=== PATIENT | female | born 1965 | race Caucasian/White ===

== ENCOUNTER 2017-10-16 09:03 | Emergency (ER) | payer OTHER ==
[~2017-10-16] VITALS: Ht 152.4 cm; Wt 59.4 kg
[~2017-10-16 09:03] MED LIST: NAPROXEN25 GM MC; TUSSIONEX PENNKI5 ML PO; ZITHROMAX500 MG PO
== END 2017-10-16 11:22 | disposition home or self-care (01) ==
LOC: ER 09:03
DX: J02.9 Acute pharyngitis, unspecified (principal); K29.70 Gastritis, unspecified, without bleeding

== ENCOUNTER 2017-10-26 10:11 | Inpatient (IN) | payer OTHER ==
[~2017-10-26] VITALS: Ht 152.4 cm; Wt 59.4 kg
[2017-10-26] MEDS ORDERED: AMOX-CLAV 875-1 EACH (10:27)
== END 2017-10-29 13:47 | disposition home or self-care (01) | DRG 392 ==
LOC: ER 10:11 → SEC-K 16:28 → MEDI 16:28
PROC: BW21Y0Z Computerized Tomography (CT Scan) of Abdomen and Pelvis using Other Contrast, Unenhanced and Enhanced (ICD-10-PCS; principal; 2017-10-26)
DX: K57.32 Diverticulitis of large intestine without perforation or abscess without bleeding (principal)

== ENCOUNTER 2018-04-15 08:44 | Day surgery (SDC) | payer OTHER ==
[~2018-04-15 08:44] MED LIST changes: +AMOX-CLAV 875-1 EACH
== END 2018-04-15 16:50 | disposition home or self-care (01) ==
LOC: AMB-ENDOS 08:44 → CIR.AMB 04-18 14:30
DX: K57.32 Diverticulitis of large intestine without perforation or abscess without bleeding (principal); K64.2 Third degree hemorrhoids

== ENCOUNTER 2018-04-24 07:25 | Emergency (ER) | payer OTHER ==
[~2018-04-24] VITALS: Ht 152.4 cm; Wt 59.0 kg
[2018-04-24] MEDS ORDERED: TUSSI PRES-B L120 M1 (07:50)
[2018-04-24] MEDS ORDERED: TAMIFLU45 MG (07:50)
[2018-04-24] MEDS ORDERED: ZITHROMAX500 MG PO (10:34)
== END 2018-04-24 10:43 | disposition home or self-care (01) ==
LOC: ER 07:25
DX: J06.9 Acute upper respiratory infection, unspecified (principal); H60.8X2 Other otitis externa, left ear; J32.0 Chronic maxillary sinusitis

== ENCOUNTER 2019-03-28 08:49 | Emergency (ER) | payer OTHER ==
[~2019-03-28] VITALS: Ht 152.4 cm; Wt 59.0 kg
[~2019-03-28 08:49] MED LIST changes: +TAMIFLU45 MG; +TUSSI PRES-B L120 M1
[2019-03-28] MEDS ORDERED: ASA81 MG (08:58)
[2019-03-28] MEDS ORDERED: ATORVASTATIN CA40 MG (08:59)
== END 2019-03-28 12:37 | disposition home or self-care (01) ==
LOC: ER 08:49
DX: R42 Dizziness and giddiness (principal); K29.70 Gastritis, unspecified, without bleeding

== ENCOUNTER 2020-10-18 14:24 | Outpatient (CLI) | payer OTHER ==
[~2020-10-18 14:24] MED LIST changes: +ASA81 MG; +ATORVASTATIN CA40 MG
== END 2020-10-18 14:56 | disposition home or self-care (01) ==
LOC: OFIC 805 14:24
PROVIDERS: ATTEND Otolaryngology Otology & Neurotology
DX: K21.9 Gastro-esophageal reflux disease without esophagitis (principal); F45.8 Other somatoform disorders; J02.8 Acute pharyngitis due to other specified organisms

== ENCOUNTER → 2021-03-01 10:12 | Outpatient (CLI) | payer OTHER | END | disposition home or self-care (01) | LOC: RAD 10:12 | PROVIDERS: ATTEND Internal Medicine Pulmonary Disease | DX: J45.31 Mild persistent asthma with (acute) exacerbation (principal); K21.9 Gastro-esophageal reflux disease without esophagitis ==

== ENCOUNTER 2021-10-29 11:48 | Outpatient (CLI) | payer OTHER | END 2021-10-29 11:49 | disposition home or self-care (01) | LOC: LAB 11:48 | PROVIDERS: ATTEND General Practice | DX: R10.9 Unspecified abdominal pain (principal) ==

== ENCOUNTER → 2021-11-11 | Outpatient (CLI) | payer OTHER | END | disposition home or self-care (01) | LOC: TOM 08:12 | PROVIDERS: ATTEND General Practice | DX: K57.92 Diverticulitis of intestine, part unspecified, without perforation or abscess without bleeding (principal) ==

== ENCOUNTER 2023-02-09 06:32 | Emergency (ER) | payer OTHER ==
[~2023-02-09] VITALS: Ht 162.6 cm; Wt 63.5 kg
== END 2023-02-09 08:13 | disposition home or self-care (01) ==
LOC: ER 06:32
DX: J06.9 Acute upper respiratory infection, unspecified (principal); J00 Acute nasopharyngitis [common cold]